=== PATIENT | male | born 1985 | race Caucasian/White ===

== ENCOUNTER 2017-06-29 10:49 | Emergency (ER) | payer BC ==
[~2017-06-29] VITALS: Wt 104.3 kg
[2017-06-29] MEDS ORDERED: VITAMIN D400 UNIT/1 PO (10:59)
[2017-06-29] MEDS ORDERED: ZYRTEC10 M3 PO (10:59)
[2017-06-29 11:36] LABS: BILIRUBIN NEGATIVE (NEGATIVE); BLOOD NEGATIVE (NEGATIVE); CLARITY CLEAR (CLEAR); COLOR YELLOW (YELLOW); GLUCOSE NEGATIVE (NEGATIVE); KETONE NEGATIVE (NEGATIVE); LEUKO ESTERASE NEGATIVE (NEGATIVE); NITRITE NEGATIVE (NEGATIVE); PH 5.5 (5.0-9.0); SPECIFIC GRAVITY <= 1.005 (1.005-1.030); UROBILINOGEN 0.2 E.U./dl (0.2-1.0)
[2017-06-29 11:38] LABS: BASO % 0.8 % (0.0-1.0); EOS # 0.1 10*3/uL (0.0-0.4); EOS % 2.3 % (1.0-4.0); HEMATOCRIT 43.6 % (42.0-52.0); HEMOGLOBIN 15.4 g/dl (14.0-18.0); LYMPH # 1.9 10*3/uL (1.3-4.4); LYMPH % 36.3 % (27.0-41.0); MEAN CELL VOLUME 84.5 fl (80.0-94.0); MEAN CORPUSCULAR HGB 29.8 pg (27.0-31.0); MEAN CORPUSCULAR HGB CONC 35.3 g/dl (33.0-37.0); MEAN PLATELET VOLUME 11.2 fl (9.6-12.3); MONO # 0.7 10*3/uL (0.1-1.0); MONO % 12.6 % (3.0-9.0); NEUT # 2.4 10*3/uL (2.3-7.9); NEUT % 47.2 % (47.0-73.0); PLATELET COUNT AUTOMATED 182 10*3/uL (130-400); RED BLOOD COUNT 5.16 10*6/uL (4.50-5.90); RED CELL DISTRI WIDTH 12.6 % (0-14.5); WHITE BLOOD COUNT 5.2 10*3/uL (4.8-10.8)
[2017-06-29 11:53] LABS: ALKALINE PHOSPHATASE 68 U/L (45-117); BUN 9 mg/dl (7-24); CHLORIDE 107 mmol/L (98-107); CREATININE 0.98 mg/dL (0.70-1.30); POTASSIUM 3.5 mmol/L (3.5-5.1); SGOT/AST 22 IU/L (3-35); SGPT/ALT 55 U/L (12-78); SODIUM 141 mmol/L (136-145); TOTAL PROTEIN 7.4 gm/dL (6.4-8.2)
[2017-06-29 11:57] LABS: RBC 0-2 rbc/hpf (0-2); WBC 0-2 wbc/hpf (0-5)
== END 2017-06-29 13:23 | disposition home or self-care (01) ==
LOC: ED 10:49
PROVIDERS: Nurse Practitioner Family
DX: R42 Dizziness and giddiness (principal); T45.0X5A Adverse effect of antiallergic and antiemetic drugs, initial encounter; Y92.89 Other specified places as the place of occurrence of the external cause

== ENCOUNTER → 2017-10-24 | Outpatient (CLI) | payer OTHER ==
[~2017-10-24] MED LIST: VITAMIN D400 UNIT/1 PO; ZYRTEC10 M3 PO
== END | disposition home or self-care (01) ==
LOC: RAD 12:59
DX: R10.13 Epigastric pain (principal); R10.12 Left upper quadrant pain

== ENCOUNTER → 2017-11-14 | Outpatient (CLI) | payer OTHER | END | disposition home or self-care (01) | LOC: CT 13:47 | DX: R10.9 Unspecified abdominal pain (principal) ==

== ENCOUNTER 2018-04-03 10:52 | Emergency (ER) | payer OTHER ==
[~2018-04-03] VITALS: Ht 177.8 cm; Wt 104.3 kg
--- NOTE | ~2018-04-03 | EKG ---
[place], [place] ELECTROCARDIOGRAM REPORT NAME: CHANO VILLAR V UNIT #: [id number] ROOM: DOCTOR: EPIPHANY DRAFT REPORT BIRTHDATE: [birth year] 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
[2018-04-03] MEDS ORDERED: AVPAK AZITHROM250 MG PO (13:32)
[2018-04-03] MEDS ORDERED: PREDNISONE20 M1 PO (13:32)
[2018-04-03] MEDS ORDERED: PROAIR HFA8.5 GM INH (13:32)
== END 2018-04-03 13:36 | disposition home or self-care (01) ==
LOC: ED 10:52
DX: J20.9 Acute bronchitis, unspecified (principal); Z79.899 Other long term (current) drug therapy

== ENCOUNTER 2018-08-03 12:59 | Emergency (ER) | payer OTHER ==
[~2018-08-03] VITALS: Ht 177.8 cm; Wt 104.3 kg
--- NOTE | ~2018-08-03 | EKG ---
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
[~2018-08-03 12:59] MED LIST changes: +AVPAK AZITHROM250 MG PO; +PREDNISONE20 M1 PO; +PROAIR HFA8.5 GM INH
[2018-08-03 13:40] LABS: BASO # 0.1 10*3/uL (0.0-0.1); BASO % 0.8 % (0.0-1.0); EOS # 0.1 10*3/uL (0.0-0.4); HEMATOCRIT 45.8 % (42.0-52.0); LYMPH # 3.6 10*3/uL (1.3-4.4); LYMPH % 49.9 % (27.0-41.0); MEAN CORPUSCULAR HGB 29.7 pg (27.0-31.0); MEAN CORPUSCULAR HGB CONC 34.9 g/dl (33.0-37.0); MEAN PLATELET VOLUME 10.6 fl (9.6-12.3); MONO # 0.6 10*3/uL (0.1-1.0); MONO % 8.6 % (3.0-9.0); NEUT # 2.8 10*3/uL (2.3-7.9); NEUT % 39.1 % (47.0-73.0); PLATELET COUNT AUTOMATED 208 10*3/uL (130-400); RED BLOOD COUNT 5.39 10*6/uL (4.50-5.90); WHITE BLOOD COUNT 7.2 10*3/uL (4.8-10.8)
[2018-08-03 14:00] LABS: ACT PARTIAL THROMBO TIME 21.3 SECONDS (20.8-31.5)
[2018-08-03 14:04] LABS: ALBUMIN 3.7 gm/dl (3.1-4.5); ALKALINE PHOSPHATASE 59 U/L (45-117); BUN 12 mg/dl (7-24); CHLORIDE 108 mmol/L (98-107); CREATININE 0.89 mg/dL (0.70-1.30); LIPASE 162 U/L (73-393); POTASSIUM 3.7 mmol/L (3.5-5.1); SGOT/AST 17 IU/L (3-35); SGPT/ALT 38 U/L (12-78); SODIUM 139 mmol/L (136-145); TOTAL PROTEIN 7.5 gm/dL (6.4-8.2)
[2018-08-03 14:09] LABS: TROPONIN I < 0.015 ng/ml (<0.045)
[2018-08-03] MEDS ORDERED: PROTONIX40 MG PO (15:32)
[2018-11-12] MEDS ORDERED: IBU800 MG PO (22:21)
[2018-11-12] MEDS ORDERED: CYCLOBENZAPRINE10 MG PO (22:21)
== END 2018-08-03 15:45 | disposition home or self-care (01) ==
LOC: ED 12:59
PROVIDERS: Emergency Medicine
DX: K29.00 Acute gastritis without bleeding (principal); E86.0 Dehydration

== ENCOUNTER 2021-11-20 04:04 | Emergency (ER) | payer BC ==
[~2021-11-20] VITALS: Ht 175.2 cm; Wt 106.6 kg
[~2021-11-20 04:04] MED LIST changes: +CYCLOBENZAPRINE10 MG PO; +IBU800 MG PO; +PROTONIX40 MG PO
== END 2021-11-20 04:44 | disposition home or self-care (01) ==
LOC: ED 04:04
DX: T15.91XA Foreign body on external eye, part unspecified, right eye, initial encounter (principal); Y92.89 Other specified places as the place of occurrence of the external cause

== ENCOUNTER 2023-11-08 10:47 | Emergency (ER) | payer OTHER ==
[~2023-11-08] VITALS: Ht 175.2 cm; Wt 99.8 kg
[2023-11-08] MEDS ORDERED: ACETAMINOPHEN 325 MG TAB PO ONE (11:30)
[2023-11-08 11:44] LABS: BASO % 0.5 % (0.0-1.0); EOS % 0.1 % (1.0-4.0); LYMPH # 2.1 10*3/uL (1.3-4.4); LYMPH % 26.2 % (27.0-41.0); MEAN CELL VOLUME 89.3 fl (80.0-94.0); MEAN CORPUSCULAR HGB 29.1 pg (27.0-31.0); MEAN CORPUSCULAR HGB CONC 32.6 g/dl (33.0-37.0); MEAN PLATELET VOLUME 10.8 fl (9.6-12.3); MONO # 0.8 10*3/uL (0.1-1.0); MONO % 10.1 % (3.0-9.0); NEUT % 62.6 % (47.0-73.0); PLATELET COUNT AUTOMATED 178 10*3/uL (130-400); RED BLOOD COUNT 5.15 10*6/uL (4.50-5.90); RED CELL DISTRI WIDTH 12.4 % (0-14.5)
[2023-11-08 12:07] LABS: ALKALINE PHOSPHATASE 63 U/L (46-116); BUN < 5 mg/dl (9-23); CHLORIDE 103 mmol/L (98-107); POTASSIUM 3.4 mmol/L (3.4-5.1); SGPT/ALT 17 U/L (5-49); TOTAL PROTEIN 7.3 gm/dL (6.0-8.0)
[2023-11-08] MEDS ORDERED: VIBRAMYCIN100 MG PO (12:24)
[2023-11-08] MEDS ORDERED: CEPHALEXIN500 M1 PO (12:24)
== END 2023-11-08 12:25 | disposition home or self-care (01) ==
LOC: ED 10:47
PROVIDERS: Physician Assistant Medical
DX: L03.314 Cellulitis of groin (principal); R00.0 Tachycardia, unspecified; R50.9 Fever, unspecified; Z79.899 Other long term (current) drug therapy